=== PATIENT | female | born 1950 | race Caucasian/White ===

== ENCOUNTER → 2017-09-21 | Outpatient (CLI) | payer BC ==
--- NOTE | 2017-09-21 12:30 | REPMRS ---
Patient History The patient states she had a clinical breast exam in 09/2017. Patient is postmenopausal. Family history of breast cancer in maternal aunt at age 50 or over, colorectal cancer in 2 other maternal aunts, and pancreatic cancer in maternal aunt. Benign excisional biopsy of the right breast, 1998. Digital Woman Screen Mammo: September 21, 2017 - Exam #: [id number] Bilateral CC and MLO view(s) were taken. Technologist: Mary Jo Higginbotham Technologist Prior study comparison: September 12, 2016, digital woman screen mammo performed at [facility] [employer]. September 10, 2015, digital woman screen mammo performed at [facility] [employer]. FINDINGS: There are scattered fibroglandular densities. There has been no change in the appearance of the mammogram from the prior studies. There is a mild amount of residual fibroglandular tissue which is fairly symmetric. There is no interval development of dominant mass, architectural distortion, or clustered microcalcification suggestive of malignancy. ASSESSMENT: BI-RADS/ACR category 1 mammogram. Negative. Recommendation Routine screening mammogram in 1 year (for women over age 40). This mammogram was interpreted with the aid of an FDA-approved computer-aided dectection system. Electronically Signed By: Joseph Latif MD 09/21/17 [id number]
== END ==
LOC: M WHC 10:11
PROVIDERS: ATTEND Nurse Practitioner Women's Health
DX: Z12.31 Encounter for screening mammogram for malignant neoplasm of breast (principal); Z80.3 Family history of malignant neoplasm of breast; Z78.0 Asymptomatic menopausal state; Z80.0 Family history of malignant neoplasm of digestive organs

== ENCOUNTER → 2018-09-22 | Outpatient (CLI) | payer BC | LOC: M WHC 10:06 | DX: Z12.31 Encounter for screening mammogram for malignant neoplasm of breast (principal); Z80.3 Family history of malignant neoplasm of breast; N60.31 Fibrosclerosis of right breast; N60.32 Fibrosclerosis of left breast | CPT/HCPCS: 77067 ==

== ENCOUNTER → 2019-09-23 | Outpatient (CLI) | payer BC ==
--- NOTE | 2019-09-23 10:17 | REPMRS ---
Patient History The patient states she had a clinical breast exam in 2018. Patient is postmenopausal. Family history of breast cancer at age 50 or over in maternal aunt, colorectal cancer in maternal aunt, colorectal cancer in maternal aunt, pancreatic cancer in maternal aunt. Benign excisional biopsy of the right breast, 1998. No Hormone Replacement Therapy 3D TOMOSYNTHESIS WAS PERFORMED. The [facility] lifetime risk for breast cancer is 6.9%. Digital Woman Screen Mammo: September 23, 2019 - Exam #: [id number] Bilateral CC and MLO view(s) were taken. Technologist: Marii Flood, Technologist Prior study comparison: September 22, 2018, bilateral digital woman screen mammo performed at [facility]. September 21, 2017, digital woman screen mammo performed at [facility]. FINDINGS: The breast tissue is heterogeneously dense. This may lower the sensitivity of mammography. There has been no change in the appearance of the mammogram from the prior studies. There is a moderate amount of residual fibroglandular tissue which is fairly symmetric. There is no interval development of dominant mass, areas of architectural distortion, or clustered microcalcification typical of malignancy. Assessment: BI-RADS/ACR category 1 mammogram. Negative Mammogram. Recommendation Routine screening mammogram in 1 year (for women over age 40). This mammogram was interpreted with the aid of an FDA-approved computer-aided dectection system. Electronically Signed By: Joseph Latif MD 09/23/19 [id number]
== END ==
LOC: M WHC 08:08
PROVIDERS: ATTEND Nurse Practitioner Women's Health
DX: Z12.31 Encounter for screening mammogram for malignant neoplasm of breast (principal)

== ENCOUNTER → 2020-10-02 | Outpatient (CLI) | payer BC ==
--- NOTE | 2020-10-02 11:00 | REPMRS ---
Patient History The patient states she had a clinical breast exam in September 2020.Family history of breast cancer at age 50 or over in maternal aunt, colorectal cancer in maternal aunt, colorectal cancer in maternal aunt, pancreatic cancer in maternal aunt. Benign excisional biopsy of the right breast, 1998. No Hormone Replacement Therapy 3D TOMOSYNTHESIS WAS PERFORMED. The [facility] lifetime risk for breast cancer is 6.5%. [employer]para breast density b. Digital Woman Screen Mammo: October 02, 2020 - Exam #: [id number] Bilateral CC and MLO view(s) were taken. Technologist: Susi Weinstein, Technologist Prior study comparison: September 23, 2019, bilateral digital woman screen mammo performed at [facility]. September 22, 2018, bilateral digital woman screen mammo performed at [facility]. FINDINGS: The breast tissue is heterogeneously dense. This may lower the sensitivity of mammography. There has been no change in the appearance of the mammogram from the prior studies. There is a moderate amount of residual fibroglandular tissue which is fairly symmetric. There is no interval development of dominant mass, areas of architectural distortion, or clustered microcalcification typical of malignancy. Large coarse benign appearing calcifications are present. No significant changes when compared with prior studies. Assessment: BI-RADS/ACR category 1 mammogram. Negative Mammogram. Recommendation Routine screening mammogram in 1 year (for women over age 40). This mammogram was interpreted with the aid of an FDA-approved computer-aided dectection system. Electronically Signed By: Joseph Latif MD 10/02/20 1100
== END ==
LOC: M WHC 09:38
PROVIDERS: ATTEND Nurse Practitioner Women's Health
DX: Z12.31 Encounter for screening mammogram for malignant neoplasm of breast (principal)

== ENCOUNTER → 2021-11-20 | Outpatient (CLI) | payer BC | LOC: M WHC 08:55 | PROVIDERS: ATTEND Family Medicine | DX: R92.2 Inconclusive mammogram (principal) | CPT/HCPCS: 76642; 77065; G0279 ==

== ENCOUNTER → 2023-02-23 | Outpatient (CLI) | payer BC | LOC: M WHC 07:42 | PROVIDERS: ATTEND Nurse Practitioner Adult Health | DX: Z12.31 Encounter for screening mammogram for malignant neoplasm of breast (principal); M81.0 Age-related osteoporosis without current pathological fracture ==

== ENCOUNTER → 2023-03-20 | Outpatient (CLI) | payer BC ==
[~2023-03-20] MED LIST: ISOVUE-370 76% 100ML VIAL As Ordered ONE
== END ==
LOC: M RAD 12:33
PROVIDERS: ATTEND Urology
DX: R31.0 Gross hematuria (principal)

== ENCOUNTER → 2024-02-26 | Outpatient (CLI) | payer BC | LOC: M WHC 09:17 | PROVIDERS: ATTEND Nurse Practitioner | DX: Z12.31 Encounter for screening mammogram for malignant neoplasm of breast (principal) ==

== ENCOUNTER → 2025-05-03 | Outpatient (CLI) | payer MEDICARE | LOC: M WHC 07:55 | PROVIDERS: ATTEND Nurse Practitioner | DX: Z12.31 Encounter for screening mammogram for malignant neoplasm of breast (principal); M81.0 Age-related osteoporosis without current pathological fracture ==